=== PATIENT | male | born 1960 | race Caucasian/White ===

== ENCOUNTER 2023-10-11 08:47 | Outpatient (REF) | payer OTHER, SELFPAY ==
[2023-10-11 09:44] LABS: INR 1.08; PT 14.1 Sec (11.4-14.6)
[2023-10-11 11:17] VITALS: BP 123/75; BP_SYST 57
[2023-10-11 12:14] VITALS: BP 124/74
[2023-10-11 13:12] VITALS: BP 129/75
== END 2023-10-11 14:01 | disposition home or self-care (01) ==
LOC: RAD 08:47
PROVIDERS: Neurological Surgery; ATTENDING PHYSICIAN Radiology Diagnostic Radiology; FAMILY PHYSICIAN Nurse Practitioner
DX: Z01.812 Encounter for preprocedural laboratory examination (principal)
CPT/HCPCS: 36415; 62304; 72132; 85610